=== PATIENT | female | born 1940 | race Caucasian/White ===

== ENCOUNTER → 2017-09-21 | Outpatient (CLI) | payer MEDICARE, OTHER ==
[~2017-09-21] MED LIST: ALIGN4 MG PO; ASPIR-LOW81 MG PO; HYDROCHLOROTH12.5 MG PO; LOSARTAN POTAS100 MG PO; NITROFURANTOIN100 MG PO; OCUVITE LUTEIN1 EACH PO; PRAVASTATIN SOD20 MG PO; VITAMIN D400 UNIT PO; [UNRECOGNIZED DRUG - OTHER] PO
--- NOTE | 2017-09-21 10:33 | Diagnostic Imaging Report ---
PROCEDURE: C-SPINE FLEX AND EXT COMPARISON: Cervical spine 08/25/2017. INDICATIONS: C-SPINE SURGERY POST OP FINDINGS: C1 through C7 are visualized on the lateral view. C5/C6 anterior discectomy and interbody fusion. There has been minimal interval bony fusion. Flexion and extension views demonstrate no change in alignment. The prevertebral soft tissues are not swollen. CONCLUSION: Status post anterior fusion of C5/C6 with some interval bony fusion. Intact hardware with adequate alignment. Dictated by: Eagle Fontaine M.D. on 09/21/2017 at 10:42 Electronically approved by: Eagle Fontaine M.D. on 09/21/2017 at 10:42
== END ==
LOC: RAD 09:43
PROVIDERS: ATTEND Neurological Surgery
DX: M50.20 Other cervical disc displacement, unspecified cervical region (principal); Z98.1 Arthrodesis status
CPT/HCPCS: 72052

== ENCOUNTER → 2018-01-16 | Outpatient (CLI) | payer MEDICARE, OTHER | LOC: LAB 10:01 | PROVIDERS: ATTEND Internal Medicine Pulmonary Disease | DX: M05.70 Rheumatoid arthritis with rheumatoid factor of unspecified site without organ or systems involvement (principal) | CPT/HCPCS: 36415; 85651; 86021; 86039; 86235; 86431 ==

== ENCOUNTER → 2018-09-19 | Outpatient (CLI) | payer MEDICARE, OTHER ==
--- NOTE | 2018-09-19 14:01 | Diagnostic Imaging Report ---
PROCEDURE: CT ABDOMEN AND PELVIS WITHOUT CONTRAST TECHNIQUE: The abdomen and pelvis were scanned utilizing a multidetector helical scanner from the diaphragm to the lesser trochanter without IV or oral contrast material utilizing LOW DOSE renal stone protocol. Coronal and sagittal multiplanar reformations were obtained. DLP: 533.27 mGy-cm COMPARISON: None. INDICATIONS: RENAL STONES, LEFT FLANK PAIN FINDINGS: ABSENCE OF INTRAVENOUS CONTRAST DECREASES SENSITIVITY FOR DETECTION OF FOCAL LESIONS AND VASCULAR PATHOLOGY. LOWER THORAX: There is cardiac enlargement. HEPATOBILIARY: No focal hepatic lesions. Hypodensity in the right lobe of the liver at the dome of the diaphragm likely is a cyst. No biliary ductal dilatation. SPLEEN: No splenomegaly. PANCREAS: No focal masses or ductal dilatation. ADRENALS: No adrenal nodules. KIDNEYS/URETERS: Nonobstructing right interpolar 3.4 mm renal stone. No hydronephrosis or solid mass lesions. PELVIC ORGANS/BLADDER: Unremarkable appearing bladder. Pelvic calcifications compatible with phleboliths. PERITONEUM / RETROPERITONEUM: No free air or fluid. LYMPH NODES: No lymphadenopathy. VESSELS: Vascular calcification. Left ovarian vein phlebolith. GI TRACT: No distention or wall thickening. The appendix is normal. BONES AND SOFT TISSUES: Degenerative changes of the spine with disc space narrowing at L3-L4 and L4-L5. Central Schmorl's node of the superior endplate of L4. Diffuse facet arthropathy. Bone island of the right symphysis pubis. IMPRESSION: 1. Nonobstructing right renal stone. 2. No hydronephrosis or perinephric fat stranding. Artemio Jha D.O. Dictated by: Artemio Jha D.O. on 09/19/2018 at 14:13 Electronically approved by: Artemio Jha D.O. on 09/19/2018 at 14:13
== END ==
LOC: CT 12:02
PROVIDERS: ATTEND Family Medicine
DX: N20.0 Calculus of kidney (principal)
CPT/HCPCS: 74176